=== PATIENT | male | born 1990 | race Hispanic/Latino ===

== ENCOUNTER 2017-06-25 16:25 | Emergency (ER) | payer OTHER ==
[2017-06-25 16:42] VITALS: BP 120/84; PULSE 92; RESP 16; TEMP 98.2; O2SAT 100
--- NOTE | 2017-06-25 17:16 | ED PDOC ---
Lower Extremity Pain/Injury Time Seen by Provider: 06/25/17 17:04 Chief Complaint (Nursing): Lower Extremity Problem/Injury Chief Complaint (Provider): Toe Pain History Per: Patient History/Exam Limitations: no limitations Onset/Duration Of Symptoms: Days (x 1) Current Symptoms Are (Timing): Still Present Additional Complaint(s): Gary is a 26 y/o male who presents to the ED complaining of toe pain. Patient bent his toe under his foot yesterday and today is having more pain and using crutches. PMD: Matt Past Medical History Reviewed: Historical Data, Nursing Documentation, Vital Signs Vital Signs: Last Vital Signs Temp 98.2 F 06/25/17 16:40 Pulse 92 H 06/25/17 16:40 Resp 16 06/25/17 16:40 BP 120/84 06/25/17 16:40 Pulse Ox 100 06/25/17 16:40 - Family History Family History: States: Unknown Family Hx - Immunization History Hx Tetanus Toxoid Vaccination: Yes (upd) Hx Influenza Vaccination: No Hx Pneumococcal Vaccination: No - Home Medications Home Medications: Ambulatory Orders Medication Instructions Recorded Amoxicillin/Clavulanate [Augmentin 1 tab PO BID #14 tab 05/05/15 875 MG-125 MG] Tramadol Hydrochloride [Tramadol] 50 mg PO BID #7 tab 05/05/15 Naproxen 1 tab PO Q12 PRN #10 tab 06/25/17 - Allergies Allergies/Adverse Reactions: Allergies Allergy/AdvReac Type Severity Reaction Status Date / Time No Known Allergies Allergy Verified 05/05/15 16:04 Review of Systems ROS Statement: Except As Marked, All Systems Reviewed And Found Negative Musculoskeletal: Positive for: Foot Pain (left toe) Physical Exam - Reviewed Nursing Documentation Reviewed: Yes Vital Signs Reviewed: Yes - Physical Exam Appears: Positive for: Well, Non-toxic, No Acute Distress Extremity: Positive for: Tenderness (left toe). Negative for: Swelling, Other ( echymosis) Neurologic/Psych: Positive for: Alert, Oriented - ECG O2 Sat by Pulse Oximetry: 100 (RA) Pulse Ox Interpretation: Normal - Progress ED Course And Treament: xry of foot left: no fx noted of toe Medical Decision Making Medical Decision Making: Time: 17:04 Initial Impression: Left Toe Pain Initial Plan: --XR Left Foot Scribe Attestation: Documented by Wale Soriano, acting as a scribe for Yonis Gunn PA-C Provider Scribe Attestation: All medical record entries made by the Scribe were at my direction and personally dictated by me. I have reviewed the chart and agree that the record accurately reflects my personal performance of the history, physical exam, medical decision making, and the department course for this patient. I have also personally directed, reviewed, and agree with the discharge instructions and disposition. Disposition - Clinical Impression Clinical Impression: Toe contusion - Patient ED Disposition Is Patient to be Admitted: No - Disposition Referrals: FAMILY PROVIDER,NO [Primary Care Provider] - Podiatry Clinic [Outside] Disposition: Routine/Home Disposition Time: 17:33 Condition: FAIR Prescriptions: Naproxen 1 tab PO Q12 PRN #10 tab PRN Reason: Pain, Moderate (4-7) Instructions: Foot Contusion (ED) Forms: [facility] ([place]), [facility] School/Work Excuse
--- NOTE | 2017-06-25 17:36 | RAD ---
PROCEDURE: Left Foot Radiographs. HISTORY: Injury. COMPARISON: None. FINDINGS: BONES: Normal. No fracture. JOINTS: Normal. SOFT TISSUES: Normal. OTHER FINDINGS: None. IMPRESSION: No evidence of acute displaced fracture nor dislocation. If symptoms persist or occult fracture suspected clinically recommend repeat radiographs 5-10 days as most fractures should become radiographically evident in this timeframe.
== END 2017-06-25 18:14 | disposition home or self-care (01) ==
LOC: H.ER 16:25
DX: S90.112A Contusion of left great toe without damage to nail, initial encounter (principal); W22.8XXA Striking against or struck by other objects, initial encounter; Y92.89 Other specified places as the place of occurrence of the external cause